=== PATIENT | female | born 1995 | race Caucasian/White ===

== ENCOUNTER 2017-06-01 14:57 | Emergency (ER) | payer OTHER ==
--- NOTE | 2017-06-01 16:27 | ED ORDER SUMMARY ---
..... Patient: MICHELLE MEHTA OrderSheet [facility] VisitID: [id number] [address] [place] [address] 22y, F Registration Date/Time: 06/01/2017 ORDER SHEET Weight: 65.7 kg (stated) Allergies: None GENERAL ORDERS: CBC w Diff Urgent (15:39 06/01/2017 Claus Fox) (Ack 15:40 KHoegabbyner) (15:41 ASchmuck) CMP Urgent (15:39 06/01/2017 Claus Fox) (Ack 15:40 KIRKoegabbyner) (15:41 ASchmuck) UA-Culture if indicated Urgent (15:39 06/01/2017 Claus Fox) (Ack 15:40 KHoerner) (15:41 ASchmuck) Urine Urgent (15:39 06/01/2017 Claus Fox) (Ack 15:40 KHoegabbyner) (15:41 ASchmuck) MEDICATION ORDERS: IV FLUIDS: IV Saline Lock (15:39 06/01/2017 Claus Fox) (15:41 ASchmuck) ORDER SHEET NOTES: [Electronically signed by Halina Hernandez (16:35 06/01/2017)] [Electronically signed by Hans Fiore Dr. (16:37 06/01/2017)] [Electronically locked/signed by Halina Hernandez (16:35 06/01/2017)]
--- NOTE | 2017-06-01 16:27 | ED ORDER SUMMARY ---
..... Patient: MICHELLE MEHTA OrderSheet [facility] VisitID: [id number] [address] [place] [address] 22y, F Registration Date/Time: 06/01/2017 ORDER SHEET Weight: 65.7 kg (stated) Allergies: None GENERAL ORDERS: CBC w Diff Urgent (15:39 06/01/2017 Claus Fox) (Ack 15:40 KHoegabbyner) (15:41 ASchmuck) CMP Urgent (15:39 06/01/2017 Claus Fox) (Ack 15:40 KIRKoegabbyner) (15:41 ASchmuck) UA-Culture if indicated Urgent (15:39 06/01/2017 Claus Fox) (Ack 15:40 KHoerner) (15:41 ASchmuck) Urine Urgent (15:39 06/01/2017 Claus Fox) (Ack 15:40 KHoegabbyner) (15:41 ASchmuck) MEDICATION ORDERS: IV FLUIDS: IV Saline Lock (15:39 06/01/2017 Claus Fox) (15:41 ASchmuck) ORDER SHEET NOTES: [Electronically signed by Halina Hernandez (16:35 06/01/2017)] [Electronically signed by Hans Fiore Dr. (16:37 06/01/2017)] [Electronically locked/signed by Halina Hernandez (16:35 06/01/2017)]
--- NOTE | 2017-06-01 16:27 | ED CLINICAL REPORT ---
Clinical Report - Physicians/Mid Levels [facility] [address] [place] [place] [address] 06/01/2017 15:02 Patient: MICHELLE MEHTA Time Seen: 15:07; initial patient contact. Arrived- By private vehicle. Historian- patient. HISTORY OF PRESENT ILLNESS Chief Complaint: ABDOMINAL PAIN. This started yesterday and is still present. At its maximum, severity described as mild. When seen in the E.D., it was almost gone. Modifying factors. Not worsened by anything. Not relieved by anything. It is described as sharp. No radiation. It is described as located in the right pelvis and in the pelvic area. No nausea, loss of appetite, vomiting or diarrhea. Similar symptoms previously: Twice. Recent medical care: The patient was seen recently at another facility in the emergency department (Pt was seen for ovarian cyst on May 08. Pt reports feeling similar pain in the same spot as last time, but not as severe. Pt felt "pinch" when drifting down the rive). REVIEW OF SYSTEMS Last normal menstrual period- 2 1 / 2 weeks ago. No constipation, pain with urination, urinary frequency, fever or irregular periods. No missed periods, vaginal discharge, back pain or difficulty with urination. The patient has had pelvic pain. All systems otherwise negative, except as recorded above. PAST HISTORY Ovarian cyst. Surgeries: No history of previous surgery. Additional Surgeries: no known surgeries. Medications: None. Allergies: None. SOCIAL HISTORY Never smoker. No alcohol use or drug use. ADDITIONAL NOTES The nursing notes have been reviewed. PHYSICAL EXAM Vital Signs: 06/01/2017 15:19 BP: 121/74. HR: 98. RR: 16. O2 saturation: 100%. Temp: 98.3 F. Have been reviewed as normal. Appearance: Alert. Oriented X3. No acute distress. Eyes: Eyes normal inspection. ENT: Pharynx normal. CVS: Normal heart rate and rhythm. Heart sounds normal. Respiratory: No respiratory distress. Breath sounds normal. Abdomen: Soft and nontender. Bowel sounds normal. No organomegaly. No mass. (Obturator and Psoas sign neg.). Back: Normal inspection. No CVA tenderness. Skin: Normal skin color. Extremities: No lower extremity edema. Neuro: Oriented X 3. LABS, X-RAYS, AND EKG Laboratory Tests: Urine: (LYUDMILA: 06/01/2017 15:21) ( MsgRcvd 06/01/2017 15:46) Final results Test Result Flag Units (Reference) URINE NEGATIVE CBC w Diff: (LYUDMILA: 06/01/2017 15:31) ( MsgRcvd 06/01/2017 15:47) Final results Test Result Flag Units (Reference) WHITE BLOOD COUNT 8.2 K/uL (4.5-11.5) RED BLOOD COUNT 4.71 M/uL (4.00-5.20) HEMOGLOBIN 14.3 gm/dL (12.0-16.0) HEMATOCRIT 42.5 % (36.0-46.0) MEAN CELL VOLUME 90 fL (80-100) MEAN CORPUSCULAR HGB 30 pg (26-34) MEAN CORPUSCULAR HGB CONC 34 g/dL (31-37) RED CELL DISTRIBUTION WIDTH 12.4 % (11.6-14.8) PLATELET COUNT 295 K/uL (150-400) NEUTROPHIL % 55.8 % (50-75) LYMPH % 33.8 % (25-40) MONO % 7.1 % (3-14) EOSINOPHIL % 2.9 % (0-4) BASOPHIL % 0.4 % (0-2) . PROGRESS AND PROCEDURES Disposition: Discharged home in good and improved condition. Condition: good. CLINICAL IMPRESSION Single right ovarian cyst. INSTRUCTIONS Your Current Medications: CONTINUE TAKING THE FOLLOWING MEDICATIONS: None*. Follow-up: Follow up with your doctor in about one week. Call for an appointment. Screening today revealed the patient's blood pressure to be in the pre-hypertensive range. The patient should follow up with a primary care provider for blood pressure management. (Electronically signed by Hans Fiore Dr. 06/01/2017 16:37)
--- NOTE | 2017-06-01 16:27 | ED NURSING NOTES ---
Clinical Report - Nurses [facility] [address] [place] [address] 06/01/2017 15:02 [id number] Triage time 15:10 Jun 01 2017. Acuity: LEVEL 3. Chief Complaint: ABDOMINAL PAIN. 15:19 06/01/17. Alert. No acute distress. SEPSIS SCREEN: Sepsis Screen. Negative (no infection suspected/documented). TEE COMA SCORE: Tee Coma Scale: 15- eyes open spontaneously (4); best verbal response- oriented x 4 (5); best motor response- obeys commands (6). --15:19 Halina Hernandez 15:19 06/01/17. BP: 121/74. HR: 98. RR: 16. O2 saturation: 100%. Temp: 98.3 F. Pain level now 1/10. --15:19 Halina Hernandez. Weight: 65.7 kg stated. Height/Length: 63 inches Per Patient. BMI: 25.7. --15:17 Halina Hernandez. Medications None. --15:15 Halina Hernandez. Medication/allergy information source: the patient. --15:19 Halina Hernandez. Allergies None. --15:15 Halina Hernandez. History Arrived by private vehicle. Historian: patient. Accompanied by family. No primary care physician. This started yesterday. Onset. (Has progressively gotten worse.). Relates location as in the right pelvic area. Notes pain level as 1/10 on arrival and 2/10 at maximum. ( Pt was seen for ovarian cyst on May 08. Pt reports feeling similar pain in the same spot as last time, but not as severe. Pt felt "pinch" when drifting down the river. Denies N/V.). She has had abdominal pain. The pain is described as located in the RLQ. No nausea, vomiting, diarrhea, constipation or fever. Treatment LEADITE MAN: None. PAST MEDICAL HX: No history of diabetes mellitus. No history of gastroesophageal reflux disease, peptic ulcer disease or gallstones. Immunizations: up-to-date. Last normal menstrual period was 3 weeks ago. SOCIAL HX: Never smoker. Occasional alcohol use. No drug use. No recent travel. No known contact with a sick individual. FALL RISK ASSESSMENT: Fall risk assessment completed. No fall risk identified. NUTRITIONAL RISK ASSESSMENT: The nutritional risk assessment revealed no deficiencies. FUNCTIONAL ASSESSMENT: Functional assessment: no impairments noted. LEARNING NEEDS ASSESSMENT: The learning needs assessment revealed no barriers. SKIN INTEGRITY ASSESSMENT: Skin integrity risk assessment completed. No skin integrity risk identified. --15:19 Halina Hernandez. PROBLEMS: Ovarian Cyst. --15:15 Halina Hernandez. Assessment The patient states feels the same. --15:19 Halina Hernandez. Interventions ID band on patient. --15:19 Halina Hernandez. PHYSICAL ASSESSMENT 15:06/01/17. Ambulatory to room. Patient gowned. GENERAL / NEURO / PSYCH: Alert. Oriented X 4. Appears in no acute distress. HEENT: Mucous membranes are pink. RESPIRATORY: Respirations not labored. CVS: Capillary refill less than 2 seconds. GI / : Abdomen soft and nontender. SKIN: Skin is warm and dry. --15:19 Halina Hernandez. NURSING PROGRESS NOTES 15:06/01/17. The plan of care for this patient has been created. Patient gowned. Head of bed elevated. Reassurance given. Two patient identifiers checked. Call light placed in reach. Side rails up x 1. Bed placed in lowest position. Brakes of bed on. Patient ready for evaluation- chart flagged and ED physician and PA notified. --15:20 Halina Hernandez 15:06/01/17. Patient ID band checked for patient name and birthdate: patient confirmed. Instructions provided to collect clean catch urine. Clean catch urine collected with return of yellow-colored clear urine; sample sent to lab. Specimen labeled in the presence of the patient. --15:20 Halina Hernandez 15:06/01/2017 Site #1 started via IV in the left antecubital space with an 20g angiocath, with aseptic technique and good blood return; one attempt. Blood drawn: rainbow set. Labeled in the presence of the patient and sent to the lab. Saline lock flushed with 10 mL saline. --15:34 Halina Hernandez 16:34 06/01/2017 Site #1 removed upon discharge. Catheter intact. Manual pressure and pressure dressing applied. --16:34 Halina Hernandez 16:34 06/01/2017 IV Saline Lock Drip IV Discontinued. Total amount infused: 0 mL. --16:34 Halina Hernandez. DISPOSITION / DISCHARGE 16:34 06/01/17. Departure time: 16:34 Jun 01 2017. Condition at departure: improved. The goals identified in the patient's plan of care were met. No learning barriers present. Discharge instructions provided and reviewed with the patient. Reviewed warnings (Patient verbalized awareness of warning s/sx listed in dc paperwork.). Treatments reviewed. Reviewed referral to an turfgrass management professor for followup. Patient and family verbalized understanding. Written instructions provided in Rwandan. The patient was discharged by the physician. She was discharged home and accompanied by family. She left the Emergency Department ambulatory and via private vehicle. Family member driving. FALL RISK ASSESSMENT: Fall risk assessment completed. No fall risk identified. --16:34 Halina Hernandez 16:33 06/01/17. BP: 106/57. HR: 83. RR: 16. O2 saturation: 100% on room air. Temp: 98.1 F. Pain level now: 01/06. --16:34 Halina Hernandez. Locked/Released at 06/01/2017 16:35 by Halina Hernandez,
--- NOTE | 2017-06-01 16:27 | ED NURSING NOTES ---
Clinical Report - Nurses [facility] [address] [place] [address] 06/01/2017 15:02 [id number] Triage time 15:10 Jun 01 2017. Acuity: LEVEL 3. Chief Complaint: ABDOMINAL PAIN. 15:19 06/01/17. Alert. No acute distress. SEPSIS SCREEN: Sepsis Screen. Negative (no infection suspected/documented). TEE COMA SCORE: Tee Coma Scale: 15- eyes open spontaneously (4); best verbal response- oriented x 4 (5); best motor response- obeys commands (6). --15:19 Halina Hernandez 15:19 06/01/17. BP: 121/74. HR: 98. RR: 16. O2 saturation: 100%. Temp: 98.3 F. Pain level now 1/10. --15:19 Halina Hernandez. Weight: 65.7 kg stated. Height/Length: 63 inches Per Patient. BMI: 25.7. --15:17 Halina Hernandez. Medications None. --15:15 Halina Hernandez. Medication/allergy information source: the patient. --15:19 Halina Hernandez. Allergies None. --15:15 Halina Hernandez. History Arrived by private vehicle. Historian: patient. Accompanied by family. No primary care physician. This started yesterday. Onset. (Has progressively gotten worse.). Relates location as in the right pelvic area. Notes pain level as 1/10 on arrival and 2/10 at maximum. ( Pt was seen for ovarian cyst on May 08. Pt reports feeling similar pain in the same spot as last time, but not as severe. Pt felt "pinch" when drifting down the river. Denies N/V.). She has had abdominal pain. The pain is described as located in the RLQ. No nausea, vomiting, diarrhea, constipation or fever. Treatment TAILING HAND: None. PAST MEDICAL HX: No history of diabetes mellitus. No history of gastroesophageal reflux disease, peptic ulcer disease or gallstones. Immunizations: up-to-date. Last normal menstrual period was 3 weeks ago. SOCIAL HX: Never smoker. Occasional alcohol use. No drug use. No recent travel. No known contact with a sick individual. FALL RISK ASSESSMENT: Fall risk assessment completed. No fall risk identified. NUTRITIONAL RISK ASSESSMENT: The nutritional risk assessment revealed no deficiencies. FUNCTIONAL ASSESSMENT: Functional assessment: no impairments noted. LEARNING NEEDS ASSESSMENT: The learning needs assessment revealed no barriers. SKIN INTEGRITY ASSESSMENT: Skin integrity risk assessment completed. No skin integrity risk identified. --15:19 Halina Hernandez. PROBLEMS: Ovarian Cyst. --15:15 Halina Hernandez. Assessment The patient states feels the same. --15:19 Halina Hernandez. Interventions ID band on patient. --15:19 Halina Hernandez. PHYSICAL ASSESSMENT 15:06/01/17. Ambulatory to room. Patient gowned. GENERAL / NEURO / PSYCH: Alert. Oriented X 4. Appears in no acute distress. HEENT: Mucous membranes are pink. RESPIRATORY: Respirations not labored. CVS: Capillary refill less than 2 seconds. GI / : Abdomen soft and nontender. SKIN: Skin is warm and dry. --15:19 Halina Hernandez. NURSING PROGRESS NOTES 15:06/01/17. The plan of care for this patient has been created. Patient gowned. Head of bed elevated. Reassurance given. Two patient identifiers checked. Call light placed in reach. Side rails up x 1. Bed placed in lowest position. Brakes of bed on. Patient ready for evaluation- chart flagged and ED physician and PA notified. --15:20 Halina Hernandez 15:06/01/17. Patient ID band checked for patient name and birthdate: patient confirmed. Instructions provided to collect clean catch urine. Clean catch urine collected with return of yellow-colored clear urine; sample sent to lab. Specimen labeled in the presence of the patient. --15:20 Halina Hernandez 15:06/01/2017 Site #1 started via IV in the left antecubital space with an 20g angiocath, with aseptic technique and good blood return; one attempt. Blood drawn: rainbow set. Labeled in the presence of the patient and sent to the lab. Saline lock flushed with 10 mL saline. --15:34 Halina Hernandez 16:34 06/01/2017 Site #1 removed upon discharge. Catheter intact. Manual pressure and pressure dressing applied. --16:34 Halina Hernandez 16:34 06/01/2017 IV Saline Lock Drip IV Discontinued. Total amount infused: 0 mL. --16:34 Halina Hernandez. DISPOSITION / DISCHARGE 16:34 06/01/17. Departure time: 16:34 Jun 01 2017. Condition at departure: improved. The goals identified in the patient's plan of care were met. No learning barriers present. Discharge instructions provided and reviewed with the patient. Reviewed warnings (Patient verbalized awareness of warning s/sx listed in dc paperwork.). Treatments reviewed. Reviewed referral to an sorority supervisor for followup. Patient and family verbalized understanding. Written instructions provided in Nigerien. The patient was discharged by the physician. She was discharged home and accompanied by family. She left the Emergency Department ambulatory and via private vehicle. Family member driving. FALL RISK ASSESSMENT: Fall risk assessment completed. No fall risk identified. --16:34 Halina Hernandez 16:33 06/01/17. BP: 106/57. HR: 83. RR: 16. O2 saturation: 100% on room air. Temp: 98.1 F. Pain level now: 01/06. --16:34 Halina Hernandez. Locked/Released at 06/01/2017 16:35 by Halina Hernandez,
--- NOTE | 2017-06-01 16:37 | ED DISCHARGE INSTRUCTIONS ---
Patient: MICHELLE MEHTA General Instructions [facility] VisitID: [id number] [address] [place] [address] 22y, F Registration Date/Time: 06/01/2017 Single right ovarian cyst. INSTRUCTIONS Your Current Medications: CONTINUE TAKING THE FOLLOWING MEDICATIONS: None*. Follow-up: Follow up with your doctor in about one week. Call for an appointment. Screening today revealed the patient's blood pressure to be in the pre-hypertensive range. The patient should follow up with a primary care provider for blood pressure management. ADDITIONAL INFORMATION Ovarian Cyst The ovary is a small organ located on each side of the uterus. During each menstrual cycle a tiny egg sac forms in the ovary. If the egg is released but does not occur, this sac usually dissolves. Sometimes, the sac may fill with fluid. It then enlarges into a painful cyst. Usually the cyst will rupture or shrink on its own. In either case, the pain gradually goes away over the next 1-3 days. If the cyst does not shrink or rupture, it may cause continued pain. Home Care: Rest in bed and avoid heavy exertion until you are feeling better. Heat to the lower abdomen usually helps (heating pad or hot packs -- a small towel soaked in hot water). You may use acetaminophen (Tylenol) or ibuprofen (Motrin, Advil) to control pain, unless another pain medicine was prescribed. [NOTE: If you have chronic liver or kidney disease or ever had a stomach ulcer or GI bleeding, talk with your doctor before using these medicines.] Follow Up: See your doctor within the next 2-3 days if your pain doesnt improve. Otherwise, follow up with your doctor after your next period or as directed by our staff. Get Prompt Medical Attention if any of the following occur: Pain worsens or fails to respond to the above measures Fever of 100.4F (38C) or higher, or as directed by your healthcare provider Heavy vaginal bleeding (soaking one pad an hour for three hours) You feel weak or dizzy Fainting Passage of a pink or goyal tissue with menstrual bleeding You have been given the following additional information: Ovarian Cyst (Electronically signed by Hans Fiore Dr. 06/01/2017 16:37)
--- NOTE | 2017-06-01 16:37 | ED MED RECONCILIATION SUMMARY ---
Patient: MICHELLE MEHTA Medication Reconciliation Report [facility] VisitID: [id number] [address] [place] [address] 22y, F Registration Date/Time: 06/01/2017 Weight: 65.7 kg Height/Length: 63 in. BMI: 25.7 ALLERGIES: None The patient's Home Medications are listed below: NONE. The source(s) of the original Home Medication information: patient The following Medications were given to the patient in the Emergency Department: None. The following Medications were prescribed to the patient: None.
--- NOTE | 2017-06-01 16:37 | ED MAR SUMMARY ---
..... Medication Administration Record [facility] [address], [place] [id number] Patient: MICHELLE MEHTA Visit ID: [id number] 22y, F Weight: 65.7 kg Height/Length: 63 in BMI: 25.7 ALLERGIES: None
--- NOTE | 2017-06-01 16:37 | ED MED RECONCILIATION SUMMARY ---
Patient: MICHELLE MEHTA Medication Reconciliation Report [facility] VisitID: [id number] [address] [place] [address] 22y, F Registration Date/Time: 06/01/2017 Weight: 65.7 kg Height/Length: 63 in. BMI: 25.7 ALLERGIES: None The patient's Home Medications are listed below: NONE. The source(s) of the original Home Medication information: patient The following Medications were given to the patient in the Emergency Department: None. The following Medications were prescribed to the patient: None.
--- NOTE | 2017-06-01 16:37 | ED MAR SUMMARY ---
..... Medication Administration Record [facility] [address], [place] [id number] Patient: MICHELLE MEHTA Visit ID: [id number] 22y, F Weight: 65.7 kg Height/Length: 63 in BMI: 25.7 ALLERGIES: None
--- NOTE | 2017-06-01 16:37 | ED DISCHARGE INSTRUCTIONS ---
Patient: MICHELLE MEHTA General Instructions [facility] VisitID: [id number] [address] [place] [address] 22y, F Registration Date/Time: 06/01/2017 Single right ovarian cyst. INSTRUCTIONS Your Current Medications: CONTINUE TAKING THE FOLLOWING MEDICATIONS: None*. Follow-up: Follow up with your doctor in about one week. Call for an appointment. Screening today revealed the patient's blood pressure to be in the pre-hypertensive range. The patient should follow up with a primary care provider for blood pressure management. ADDITIONAL INFORMATION Ovarian Cyst The ovary is a small organ located on each side of the uterus. During each menstrual cycle a tiny egg sac forms in the ovary. If the egg is released but does not occur, this sac usually dissolves. Sometimes, the sac may fill with fluid. It then enlarges into a painful cyst. Usually the cyst will rupture or shrink on its own. In either case, the pain gradually goes away over the next 1-3 days. If the cyst does not shrink or rupture, it may cause continued pain. Home Care: Rest in bed and avoid heavy exertion until you are feeling better. Heat to the lower abdomen usually helps (heating pad or hot packs -- a small towel soaked in hot water). You may use acetaminophen (Tylenol) or ibuprofen (Motrin, Advil) to control pain, unless another pain medicine was prescribed. [NOTE: If you have chronic liver or kidney disease or ever had a stomach ulcer or GI bleeding, talk with your doctor before using these medicines.] Follow Up: See your doctor within the next 2-3 days if your pain doesnt improve. Otherwise, follow up with your doctor after your next period or as directed by our staff. Get Prompt Medical Attention if any of the following occur: Pain worsens or fails to respond to the above measures Fever of 100.4F (38C) or higher, or as directed by your healthcare provider Heavy vaginal bleeding (soaking one pad an hour for three hours) You feel weak or dizzy Fainting Passage of a pink or goyal tissue with menstrual bleeding You have been given the following additional information: Ovarian Cyst (Electronically signed by Hans Fiore Dr. 06/01/2017 16:37)
== END 2017-06-01 16:35 | disposition home or self-care (01) ==
LOC: ED SRH 14:57
DX: N83.291 Other ovarian cyst, right side (principal)
CPT/HCPCS: 90004; 90100; 93070; 95059